=== PATIENT | male | born 1980 | race Caucasian/White ===

== ENCOUNTER → 2019-06-28 18:00 | Outpatient (CLI) | payer OTHER, SELFPAY ==
--- NOTE | 2019-06-28 | DI.MRI.S_ITS ---
PROCEDURE: MR SHOULDER RT WO CON INDICATIONS: Pain in right shoulder TECHNIQUE: Noncontrast oblique coronal T2 fast spin echo with fat saturation, oblique sagittal T1 spin echo and T2 fast spin echo with fat saturation, axial T1 spin echo and T2 fast spin echo with fat saturation through the shoulder. COMPARISON: None. FINDINGS: Image quality: Excellent. Rotator cuff: Tendinosis and low-grade articular and bursal surface partial-thickness tear involving distal supraspinatus and infraspinatus at the insertion the humeral head is seen extending to the musculotendinous junction. No full-thickness rotator cuff tendon rupture. Distal subscapularis tendinosis is seen. Sagittal images demonstrate no significant muscle atrophy. Bones and bursae: Marrow edema involving greater tuberosity of humeral head near rotator cuff tendon insertion site which may represent an avulsion injury in this area. No other area of abnormal marrow signal. Mild to moderate acromioclavicular joint osteoarthritic changes are noted with downward osteophyte formation compressing on musculotendinous junction of supraspinatus. The No pathologic subacromial-subdeltoid or subcoracoid bursal fluid is present. Capsule and soft tissues: In the absence of intra-articular contrast, there is signal abnormality and contour irregularity involving superior anterior labrum at 12 to 2:00 position suggestive of superior anterior labral tear. The glenohumeral ligaments are intact. The long head of the biceps tendon demonstrates normal location and morphology. The rotator interval appears normal, without fibrosis. The coracohumeral ligament is normal in thickness. IMPRESSION: 1. Tendinosis and low to moderately articular and bursal surface partial-thickness tear involving distal supraspinatus and infraspinatus. Distal subscapularis tendinosis. 2. 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 Possible avulsion injury versus contusion involving greater tuberosity near rotator cuff tendon insertion site. 3. Suggestion of superior anterior labral tear at 12 to 2:00 position. Dictated by: Gaurav Worthy M.D. on 06/29/2019 at 9:54 Approved by: Gaurav Wortyh M.D. on 06/29/2019 at 10:50
== END ==
PROVIDERS: PCP Student in an Organized Health Care Education/Training Program; Visit Provider Student in an Organized Health Care Education/Training Program
DX: M25.511 Pain in right shoulder (principal); M75.111 Incomplete rotator cuff tear or rupture of right shoulder, not specified as traumatic; M19.011 Primary osteoarthritis, right shoulder
CPT/HCPCS: 73221

== ENCOUNTER → 2021-04-14 09:35 | Outpatient (CLI) | payer OTHER, SELFPAY ==
--- NOTE | 2021-04-14 | DI.MRI.S_ITS ---
PROCEDURE: MR KNEE RT WO CON INDICATIONS: Pain in right knee TECHNIQUE: Noncontrast sagittal PD fast spin echo and T2 fast spin echo with fat saturation, sagittal 3-D FLASH with fat saturation; coronal T1 spin echo and PD fast spin echo with fat saturation, and axial PD fast spin echo with fat saturation through the knee. COMPARISON: None. FINDINGS: Image quality: Excellent. Menisci: Complex oblique tear involving posterior horn of medial meniscus is seen extending to inferior articulating surface. There is no focal lateral meniscal tear. The meniscal root ligaments appear intact. Cruciate ligaments: The anterior and posterior cruciate ligaments appear intact. Medial structures: Low to moderate grade MCL sprain/partial-thickness tear near its femoral insertion is noted. The posterior oblique ligament, semimembranosus tendon insertions, oblique popliteal ligament, and meniscocapsular junction appear intact. Visualized portions of the pes anserinus tendons appear normal. No abnormal bursal fluid. Lateral structures: The lateral collateral ligament, long and short heads of the biceps femoris tendon appear intact. The popliteus tendon appears normal; the popliteofibular ligament appears intact. The posterosuperior and anteroinferior popliteomeniscal fascicles appear intact. The arcuate and fabellofibular ligaments appear intact, on either side of the lateral inferior geniculate artery. Iliotibial band appears normal. Anterior structures: The quadriceps and patellar tendons appear intact. Patellar alignment is normal. No femoral trochlear dysplasia or ventral trochlear prominence. No edema in the infrapatellar fat pad. Bones and cartilage: No bone marrow contusions or fractures. The cartilage of the medial and lateral femorotibial compartments, as well as the patellofemoral compartment, appears normal in thickness. Joint space: There is physiologic knee joint fluid. No Byrne's cyst. Normal appearing synovial plicae are incidentally noted. IMPRESSION: 1. Complex oblique tear involving posterior horn of medial meniscus extending to inferior articulating surface. No focal lateral meniscal tear. 2. Cruciate ligaments are intact. Low to moderate grade proximal MCL sprain/partial-thickness tear. 3. No marrow edema. No fracture or dislocation. Dictated by: Gaurav Worthy M.D. on 04/14/2021 at 12:45 Approved by: Gaurav Worthy M.D. on 04/14/2021 at 12:52
== END ==
PROVIDERS: PCP Student in an Organized Health Care Education/Training Program; Referring Provider Student in an Organized Health Care Education/Training Program; Visit Provider Student in an Organized Health Care Education/Training Program
DX: M25.561 Pain in right knee (principal); S83.231A Complex tear of medial meniscus, current injury, right knee, initial encounter; S83.411A Sprain of medial collateral ligament of right knee, initial encounter
CPT/HCPCS: 73721

== ENCOUNTER → 2023-04-15 11:01 | Outpatient (CLI) | payer OTHER, SELFPAY ==
--- NOTE | 2023-04-15 | DI.RAD.S_ITS ---
PROCEDURE: XR FOOT RT 2V INDICATIONS: Unspecified open wound of right great toe with damage to charlee TECHNIQUE: 2 views of the foot were acquired. COMPARISON: None. FINDINGS: Bones: Minimal 1st MTP joint space narrowing. No radiographic erosion is apparent. No displaced fracture or dislocation. Prominent dorsal osteophytes from the talus. Plantar enthesopathy. Soft tissues: No suspicious calcifications. IMPRESSION: No acute radiographic abnormality. Minimal 1st MTP degenerative changes, and dorsal talar osteophytes. If there is high concern for further derangement, consider MRI evaluation. Dictated by: Abilio Veronica M.D. on 04/15/2023 at 13:23 Approved by: Abilio Veronica M.D. on 04/15/2023 at 13:25
== END ==
PROVIDERS: PCP Student in an Organized Health Care Education/Training Program; Referring Provider Chiropractor; Visit Provider Chiropractor
DX: S91.201A Unspecified open wound of right great toe with damage to nail, initial encounter (principal); X58.XXXA Exposure to other specified factors, initial encounter
CPT/HCPCS: 73620